=== PATIENT | female | born 2000 | race Caucasian/White ===

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

== ENCOUNTER 2020-05-16 01:05 | Outpatient (CLI) | payer MEDICAID, SELFPAY ==
[2020-05-16 01:20] VITALS: BMI 28.1
[2020-05-16 01:28] VITALS: BP 117/74; PULSE 94; TEMP 36.7; O2SAT 98
[2020-05-16 01:38] VITALS: TEMP 36.7; O2SAT 98
--- NOTE | 2020-05-16 09:53 | OB.TRI.HP_ITS ---
- Problem List (1) 39 weeks gestation of Status: Acute (2) Irregular contractions Status: Acute History of Present Illness Date of Service: 05/16/20 Was patient seen by the physician?: No Reason For Visit: R/O LABOR Date of Service: 05/16/20 Final RAISA: 05/22/20 Gestational age: 39 Weeks and 1 Days History of Present Illness: Patient is 19 year old that presents to triage c/o contractions for most of the night. Denies any LOF or VB. Patient has positive movement. Allergies No Known Allergies Allergy (Verified 11/22/18 09:32) Review of Systems Constitutional: Denies: Chills, Fever, Weight Change HEENT: Reports: Sinus Congestion, Sinus Drainage Gastrointestinal: Denies: Abdominal Pain, Nausea, Vomiting Genitourinary: Denies: Dysuria Physical Exam Vitals: Vital Signs Temp Pulse BP Pulse Ox 98.0 F 94 117/74 98 05/16/20 01:38 05/16/20 01:28 05/16/20 01:28 05/16/20 01:38 General: Alert Cardiovascular: Regular rate Lungs: Normal air movement Abdomen: Soft, Gravid Neurological: Cranial nerves II-XII grossly intact Estimated gestational size: Appropriate for gestational size Presentation: Cephalic Cervix Dilation (cm): 2 Station: -3 Effacement (%): 70 NST - FHR Rate Baby A Baseline: 125 Variability:: Moderate Accelerations:: 15 x 15 Decelerations:: None NST Reactive:: Yes FHR Category:: Category I Uterine Activity:: [place] reading 3-7 minutes. Palpate mild and relaxed in between Impression/Plan Patient is a at 39.1 weeks gestation for R/O labor NST reactive Category 1 tracing CE unchanged Discharge home with labor precautions Follow up in office for scheduled visit Patient agrees with plan of care
[2020-05-16 19:20] VITALS: TEMP 36.9; O2SAT 98
[2020-05-16 19:21] VITALS: BP 123/66; PULSE 100
== END 2020-05-16 03:40 | disposition home or self-care (01) ==
LOC: WPOUT 01:10 → OBT 01:11
PROVIDERS: Visit Provider Advanced Practice Midwife
DX: O62.9 Abnormality of forces of labor, unspecified (principal); Z3A.39 39 weeks gestation of pregnancy
CPT/HCPCS: 59025; 59050; 99218; G0378

== ENCOUNTER 2020-05-16 19:45 | Inpatient (IN) | payer MEDICAID, SELFPAY ==
[2020-05-16] VITALS (27 sets, daily range): BP systolic 98–120; BP diastolic 52–85; PULSE 75–113; TEMP 37–37.1; O2SAT 88–100; BMI 28.1; BMI 27.4
[2020-05-16] MEDS: Lactated Ringers 500 ML 999 ML IV (20:10)
[2020-05-16 20:26] LABS: Absolute Lymphocyte Count 1.53 X10^3/uL (0.83-4.51); Absolute Neutrophil Count 8.2 X10^3/uL (2.0-7.7); Basophil# 0.01 X10^3/uL; Basophil% 0.1 % (0-1); Eosinophil# 0.03 X10^3/uL; Eosinophils% 0.3 % (0-5); Hematocrit 39.3 % (37-47); Hemoglobin 13.1 g/dL (12.0-15.0); Lymphocyte # 1.53 X10^3/ul (4.0); Lymphocyte % 14.8 % (19-41); Mean Corp Hgb Conc 33.3 g/dL (32-36); Mean Corpuscular Hgb 30.2 pg (27.0-32.0); Mean Corpuscular Volume 90.6 fL (81-99); Mean Platelet Vol. 10.7 fl (6.2-12.0); Monocyte# 0.52 X10^3/uL; NRBC Flagged by Analyzer 0 % (0-5); Neutrophil # 8.21 X10^3/uL (2.7-7.7); Neutrophil % 79.5 % (47-70); Platelet Count 131 K/mm3 (150-450); RBC Distribution Width CV 13.4 % (11.6-14.6); RBC Distribution Width SD 44.1 fl (35.1-43.9); Red Blood Count 4.34 M/mm3 (4.2-5.4); White Blood Count 10.3 K/mm3 (4.4-11.0)
[2020-05-16] MEDS: Ondansetron 4 MG/2 ML Vial IV (20:46)
[2020-05-16] MEDS: Lactated Ringers 1,000 ML 200 ML IV (20:49)
--- NOTE | 2020-05-16 21:40 | HP.PCM_ITS ---
- Problem List (1) Active labor Status: Acute (2) 39 weeks gestation of Status: Acute (3) Group beta Strep positive Status: Acute History Date of Admission: 05/16/20 Final RAISA: 05/22/20 Gestational age: 39 Weeks and 1 Days History of this : This is a 19 year-old, G [1], P [0], at 39.1 weeks gestational age that arrives in spontaneous labor. Patient reports having strong, regular contractions that started yesterday. Denies loss of fluid or vaginal bleeding. Positive movement. uncomplicated Allergies No Known Allergies Allergy (Verified 11/22/18 09:32) Home Medications: Home Medications Pnv No.95/Ferrous Fum/Folic AC [ Formula] 1 ea PO DAILY 05/16/20 Smoking Status: Never smoker Number of Fetus(es): 1 NST - FHR Rate Baby A Baseline: 155 Variability:: Moderate Accelerations:: 15 x 15 Decelerations:: None NST Reactive:: Yes FHR Category:: Category I Uterine Activity:: Contractions every 2-4 minutes. Palpate moderate and relaxed in between History Past Pregnancies: Past Pregnancies Delivery Date Name GA/ Weeks Outcome Route Wt Sex Labor Length Anesthesia Delivery Location Provider FOB Labs: A positive Rubella- Immune HB- negative HIV- NR RPR- NR GC/C negative GBS - Positive in urine Review of Systems Constitutional: Denies: Chills, Fever, Weight Change Cardiovascular: Denies: Chest Pain, Palpitations Respiratory: Denies: Cough, Shortness of breath at rest Gastrointestinal: Denies: Dyspepsia Neurological: Denies: Numbness, Tingling, Focal weakness Physical Exam Vitals: Vital Signs Temp Pulse BP Pulse Ox 98.7 F 93 119/65 98 05/16/20 21:20 05/16/20 21:13 05/16/20 21:07 05/16/20 21:20 General: Alert, Oriented x3, Cooperative Cardiovascular: Regular rate Lungs: Normal air movement Abdomen: Gravid Neurological: Cranial nerves II-XII grossly intact APPLICATIONS DEVELOPMENT ANALYST: Normal external genitalia Cervix Dilation (cm): 4.5 Station: -2 Effacement (%): 70 Assessment/Plan All Active Problems 39 weeks gestation of (Acute) Irregular contractions (Acute) Active labor (Acute) Group beta Strep positive (Acute) This is a 19 year-old, G [1], P [0], at 39.1 weeks gestational age in spontaneous labor. Category 1 tracing GBS -positive P: Admit to labor and delivery Routine labs IV fluids per protocol Start GBS prophylaxis therapy- PCN 5 million units IV x1 now and PCN 3 million units every 4 hours until delivery Epidural for pain relief per patient request Declines LARC Anticipate Dr. Sanchez notified of admission and is collaborating physician
[2020-05-16] MEDS: Oxytocin 30 units/NS 500 ml 30 UNITS/500 ML IV.SOLN IV (23:11)
[2020-05-17] VITALS (36 sets, daily range): BP systolic 83–123; BP diastolic 44–64; PULSE 61–180; RESP 14–18; TEMP 36.3–37.6; O2SAT 82–100
[2020-05-17] MEDS: Lactated Ringers 1,000 ML 200 ML IV ×2 (00:59→05:47)
[2020-05-17] MEDS: fentaNYL-bupivacaine (epidural) 100 ML BAG EPIDURAL ×2 (03:23→08:05)
--- NOTE | 2020-05-17 07:51 | PN.OBGYN_ITS ---
Patient Problems: Active and Suspected Problems Active labor (Acute) Group beta Strep positive (Acute) Subjective: Patient denies pain and is comfortable with epidural. Denies feeling any contractions or pressure. Objective: Patient seen at bedside. Resting comfortably. - Physical Exam Vitals/I&O's: Vital Signs Temp Pulse BP Pulse Ox 99.2 F H 180 H 107/56 L 82 05/17/20 07:01 05/17/20 07:34 05/17/20 07:34 05/17/20 07:34 Weight: 150 lb Body Mass Index (BMI) 27.4 Intake and Output for Last 24 Hours 05/15/20 05/16/20 05/17/20 23:59 23:59 23:59 Intake Total 805 / 805 1994. / Output Total 200 / 200 900 / 900 Balance 605 / 605 1095.63 / 1095.63 General: Alert Lungs: Normal air movement Cardiovascular: Regular rate Neurological: Cranial nerves II-XII grossly intact Psych/Mental Status: Normal Affect, Appropriate Comment: CE- 10cm/-1 station Laboratory Results 05/16/20 20:10: WBC 10.3, RBC 4.34, Hgb 13.1, Hct 39.3, MCV 90.6, MCH 30.2, MCHC 33.3, RDW Std Deviation 44.1 H, RDW Coeff of Edward 13.4, Plt Count 131 L, MPV 10.7, Immature Gran % (Auto) 0.300, Neut % (Auto) 79.5 H, Lymph % (Auto) 14.8 L, [place] % (Auto) 5.0, Eos % (Auto) 0.3, Baso % (Auto) 0.1, Absolute Neuts (auto) 8.2 H, Absolute Lymphs (auto) 1.53, Nucleated RBC % 0 05/16/20 20:10: Blood Type A POSITIVE, Antibody Screen NEGATIVE 05/16/20 21:00: COVID-19 ([facility]ARA) Not Detected Current Medications Acetaminophen (Tylenol) 325 - 650 mg PO Q4H PRN PRN PRN Reason: Pain Score 1-3/10 Al Hydroxide/Mg Hydroxide (Mylanta Ii) 15 - 30 ml PO Q4H PRN PRN PRN Reason: INDIGESTION Citric Acid/Sodium Citrate (Bicitra) 30 ml PO X1 PRN PRN Reason: Section Ephedrine Sulfate () 10 mg IV Q10M PRN PRN Reason: hypotension Ephedrine Sulfate () 10 mg IM Q30M PRN PRN Reason: hypotension Fentanyl Citrate (Sublimaze (100mcg Ampule)) 25 - 50 mcg IV Q2H PRN PRN PRN Reason: Pain Score 4-10/10 Fentanyl/Bupivacaine/Sodium Chlor () 100 ml EPIDURAL UD [facility]; Protocol Last Admin: 05/17/20 03:23 Dose: 100 ml Documented by: Lactated Ringer's () 500 mls @ 999 mls/hr IV .Q31M PRN PRN Reason: Epidural Last Infusion: 05/16/20 20:49 Dose: Infused Documented by: Lactated Ringer's () 500 mls @ 999 mls/hr IV .Q31M PRN PRN Reason: Corrective Measures Lactated Ringer's () 1,000 mls @ 50 mls/hr IV .Q20H [facility] Last Admin: 05/17/20 05:47 Dose: 200 mls/hr Documented by: Penicillin G Potassium/Dextrose (Penicillin G Potassium) 3 mu in 50 mls @ 100 mls/hr IV Q4H [facility] Last Infusion: 05/17/20 05:35 Dose: Infused Documented by: Naloxone HCl 4 mg/ Dextrose 504 mls @ 0 mls/hr IV .Q0M PRN; Protocol PRN Reason: To maintain Resp. rate >10 Oxytocin/Sodium Chloride () 30 units in 500 mls @ 2 mls/hr IV .Q250H [facility] Last Infusion: 05/17/20 00:20 Dose: 4 mls/hr Documented by: Nalbuphine HCl (Nubain) 5 mg IV Q3H PRN PRN PRN Reason: ITCHING Naloxone HCl (Narcan) 0.02 mg IV Q1M PRN PRN Reason: RR< 10 AND PT UNRESPONSIVE Ondansetron HCl (Zofran) 4 mg IV Q4H PRN PRN PRN Reason: NAUSEA Last Admin: 05/16/20 20:46 Dose: 4 mg Documented by: Prochlorperazine Edisylate (Compazine Iv) 10 mg IV Q6H PRN PRN PRN Reason: NAUSEA Sodium Chloride () 10 - 40 ml IV X1 PRN PRN Reason: SALINE FLUSH Medical Necessity - Tobacco Use Smoking Status: Never smoker Assessment/Plan All Active Problems 39 weeks gestation of (Acute) Irregular contractions (Acute) Active labor (Acute) Group beta Strep positive (Acute) A/P Term spontaneous labor Patient treated appropriately with PCN IV for GBS positive status Complete dilation A.R.O.M for moderate amount of clear fluid Start pushing Routine care Anticipate
[2020-05-17] MEDS: Ondansetron 4 MG/2 ML Vial IV (08:12)
[2020-05-17] MEDS: Mag Hydrox/Al Hydrox/Simeth 30 ML UDC PO (08:58)
[2020-05-17] MEDS: Oxytocin 30 units/NS 500 ml 30 UNITS/500 ML IV.SOLN 334 UNITS IV (10:33)
--- NOTE | 2020-05-17 10:53 | PCM.OPRPT ---
Problem List (1) Active labor Status: Acute (2) 39 weeks gestation of Status: Acute (3) Group beta Strep positive Status: Acute (4) (spontaneous vaginal delivery) Status: Acute Report of Operation Date of Procedure: 05/17/20 Pre-Operative Diagnosis: Term gestation, spontaneous labor Post-Operative Diagnosis: Same, viable female infant Surgery/Procedure Performed:: Vaginal Delivery Maternal Presentation: Active Labor Amniotic Membrane Rupture Type: Artificial Amniotic Fluid Description: Clear Gestational age: 39.1 Date of Procedure: 05/17/20 Pre-Operative Diagnosis: Term gestation, spontaneous labor Post-Operative Diagnosis: Same, viable female Type of Anesthesia: Epidural Description of Procedure: of female . Good maternal pushing efforts delivered head. Tight nuchal cord noted and unable to reduce. Gentle downward traction with delivery of the anterior shoulder followed by the rest of delivered in somersault maneuver. Cord around body as well. Large amount of terminal meconium noted. Cord was quickly clamped and cut and passed off to awaiting nursing staff. Placenta delivered soon after spontaneously and intact. Fundus firm at U. Intact perineum. Hemostasis present. Presentation: LEROY Placental Delivery Description: Spontaneous Placenta Disposition: [facility] Cord Vessel Description: 3 Vessels Nuchal Cord Compression: With compression Cord Gases drawn per routine: ABG, VBG Cord Entanglement: Around neck x 1, tight - Around body Drain: Key[place] to straight drain Estimated Blood Loss: 300 Infant A gender: Female (1 minute): 6 - Terminal mec (5 minute): 8 Episiotomy Description: None Laceration: None Medications given after delivery: IV Pitocin
[2020-05-17] MEDS: 0.9% Saline Lock 10 ML Syringe IV (13:04)
[2020-05-17] MEDS: Ibuprofen 600 MG Tablet PO ×2 (13:05→19:15)
[2020-05-17] MEDS: Acetaminophen 500 MG Tablet 1000 MG PO (17:56)
[2020-05-18] MEDS: Ibuprofen 600 MG Tablet PO ×2 (02:16→11:13)
[2020-05-18 03:14] VITALS: BP 100/54; PULSE 74; RESP 14; TEMP 36.3
[2020-05-18] MEDS: Acetaminophen 500 MG Tablet 1000 MG PO (07:14)
[2020-05-18 08:00] VITALS: BP 109/55; PULSE 81; RESP 16; TEMP 36.5
[2020-05-18 08:07] VITALS: BP 109/55; PULSE 81
--- NOTE | 2020-05-18 08:47 | DCINST_ITS ---
Discharge Diet: No Restrictions Discharge Activity: Return to Normal Activity, May not drive while taking narcotic pain medications., May Shower May resume sexual activity in: 4-6 weeks Additional Activity Instructions:: Nothing in the vagina for 4-6 weeks. You may return to work/school in 6 weeks. Call your doctor if your incision/area has: Continuous Slow Oozing, Sudden Increased Bleeding, Increased Pain/ Swelling, Increased Redness, Foul Smelling Discharge Additional Instructions: If you experience any of the following, contact your healthcare provider. * Bleeding that soaks a pad every hour for 2 hours * Fever 100.4 or higher * Unrelieved incision or abdominal pain * Swelling, redness, discharge or bleeding from your incision or episiotomy site * Your incision begins to separate * Problems urinating (including inability to urinate or burning while urinating). * Visual changes * Severe headache * Flu-like symptoms * Pain or redness in one of both of your breasts * Pain, warmth, tenderness or swelling in your legs, especially the calf area * Frequent nausea and vomiting * Symptoms of depression or anxiety If you experience any of the following, call 911 or go to the nearest Emergency Room. * Chest pain * Problems breathing * Seizure activity * Partial or complete paralysis of a body part, slurred speech, weakness or drooping of the face, or a sudden inability to walk or hold your balance Allergies/Adverse Reactions: Allergies No Known Allergies Allergy (Verified 11/22/18 09:32) Medications to take at Discharge Pnv No.95/Ferrous Fum/Folic AC [ Formula Tablet] 1 ea PO DAILY 05/16/20 Please Follow Up With: Tisha England MD - [phone] When: Call to make an appointment with our office in 1-2 and 6 weeks or as needed They can be virtual appointments if you desire. Primary Care Physician: Care Physician,No Primary [Primary Care Provider] - Test Results: Test results from this visit will be discussed in further detail at your follow- up appointment, if applicable.
--- NOTE | 2020-05-18 08:47 | PCM.DCVAG ---
Discharge Diet: No Restrictions Discharge Activity: Return to Normal Activity, May not drive while taking narcotic pain medications., May Shower May resume sexual activity in: 4-6 weeks Additional Activity Instructions:: Nothing in the vagina for 4-6 weeks. You may return to work/school in 6 weeks. Call your doctor if your incision/area has: Continuous Slow Oozing, Sudden Increased Bleeding, Increased Pain/ Swelling, Increased Redness, Foul Smelling Discharge Additional Instructions: If you experience any of the following, contact your healthcare provider. Bleeding that soaks a pad every hour for 2 hours Fever 100.4 or higher Unrelieved incision or abdominal pain Swelling, redness, discharge or bleeding from your incision or episiotomy site Your incision begins to separate Problems urinating (including inability to urinate or burning while urinating). Visual changes Severe headache Flu-like symptoms Pain or redness in one of both of your breasts Pain, warmth, tenderness or swelling in your legs, especially the calf area Frequent nausea and vomiting Symptoms of depression or anxiety If you experience any of the following, call 911 or go to the nearest Emergency Room. Chest pain Problems breathing Seizure activity Partial or complete paralysis of a body part, slurred speech, weakness or drooping of the face, or a sudden inability to walk or hold your balance Allergies/Adverse Reactions: Allergies No Known Allergies Allergy (Verified 11/22/18 09:32) Medications to take at Discharge Pnv No.95/Ferrous Fum/Folic AC [ Formula Tablet] 1 ea PO DAILY 05/16/20 Please Follow Up With: Tisha England MD - [phone] When: Call to make an appointment with our office in 1-2 and 6 weeks or as needed They can be virtual appointments if you desire. Primary Care Physician: Care Physician,No Primary [Primary Care Provider] - Test Results: Test results from this visit will be discussed in further detail at your follow-up appointment, if applicable.
--- NOTE | 2020-05-18 08:48 | PCM.PN.OB ---
Patient Problems: Active and Suspected Problems Active labor (Acute) Group beta Strep positive (Acute) (spontaneous vaginal delivery) (Acute) Subjective: pain well controlled, average lochia - Physical Exam Vitals/I&O's: Vital Signs Temp Pulse Resp BP Pulse Ox 97.4 F L 81 14 109/55 L 97 05/18/20 03:14 05/18/20 08:07 05/18/20 03:14 05/18/20 08:07 05/17/20 16:25 Oxygen Delivery Method Room Air Weight: 68.039 kg Body Mass Index (BMI) 27.4 Intake and Output for Last 24 Hours 05/16/20 05/17/20 05/18/20 23:59 23:59 23:59 Intake Total 805 / 805 4489.49 / 4489.49 Output Total 200 / 200 2275 / 2275 450 / 450 Balance 605 / 605 2214.49 / 2214.49 -450 / -450 General: Alert, Cooperative, No apparent distress Current Medications Acetaminophen (Tylenol) 1,000 mg PO Q8H PRN PRN PRN Reason: Pain Score 1-3/10 Last Admin: 05/18/20 07:14 Dose: 1,000 mg Documented by: Bisacodyl (Dulcolax) 10 mg RECTAL UD PRN PRN Reason: If no BM Dibucaine (Dibucaine) 1 applic TOPICAL TID PRN PRN; Protocol PRN Reason: Discomfort Hydrocortisone (Hytone) 1 applic TOPICAL TID PRN PRN; Protocol PRN Reason: Discomfort Ibuprofen (Motrin) 600 mg PO Q6H PRN PRN PRN Reason: Pain Score 1-3/10 Last Admin: 05/18/20 02:16 Dose: 600 mg Documented by: Methylergonovine Maleate (Methergine) 0.2 mg IM X1 PRN PRN Reason: Excess bleeding/uterine atony Ondansetron HCl (Zofran) 4 mg IV Q4H PRN PRN PRN Reason: Nausea Oxycodone HCl (Oxyir) 5 - 10 mg PO Q4H PRN PRN PRN Reason: Pain Score 4-10/10 Senna/Docusate Sodium (Senokot-S, Elaina-Colace) 1 - 2 tablet PO DAILY PRN PRN PRN Reason: Constipation Simethicone (Mylicon) 80 mg PO PCHS PRN PRN Reason: Indigestion/Stomach pain Sodium Chloride () 5 - 15 ml IV UD PRN PRN Reason: SALINE FLUSH Last Admin: 05/17/20 13:04 Dose: 10 ml Documented by: Medical Necessity - Tobacco Use Smoking Status: Never smoker Assessment/Plan All Active Problems 39 weeks gestation of (Acute) Irregular contractions (Acute) Active labor (Acute) Group beta Strep positive (Acute) (spontaneous vaginal delivery) (Acute) PPD#1 s/p doing well and doing well desires d/c home today
[2020-05-18 13:04] VITALS: BP 103/56; PULSE 82
[2020-05-18 13:17] VITALS: BP 103/56; PULSE 82; RESP 16; TEMP 36.4
== END 2020-05-18 14:20 | disposition home or self-care (01) | DRG 560 ==
LOC: WPOUT 19:48 → WP 19:48
PROVIDERS: Admitting Provider Advanced Practice Midwife; Visit Provider Advanced Practice Midwife
DX: O99.824 Streptococcus B carrier state complicating childbirth (principal); O69.1XX0 Labor and delivery complicated by cord around neck, with compression, not applicable or unspecified; O77.0 Labor and delivery complicated by meconium in amniotic fluid; Z3A.39 39 weeks gestation of pregnancy; Z37.0 Single live birth
CPT/HCPCS: 59025; 59050; 85025; 86850; 86900; 86901; 87635; 99218; G2023; J7120; A4216; G0378; J2405; U0003

== ENCOUNTER 2024-08-05 07:17 | Inpatient (IN) | payer MEDICAID, SELFPAY ==
[2024-08-05] VITALS (51 sets, daily range): BP systolic 91–195; BP diastolic 39–113; PULSE 69–118; RESP 13–19; TEMP 36.2–37.4; O2SAT 94–100; BMI 29.2
--- NOTE | 2024-08-05 | PLAC_PTH ---
PATIENT: RATNA WHATLEY LOC: [facility] U#:[id number] AGE/SX: 24/F ROOM: WP003 RE08/05/[address]: Dr. Brittany Tomas MD : 2000 BED: 1 DIS: 08/07/2024 SPEC #: [id number] RECD: 08/06/24 00:16 STATUS: RON REQ #: [id number] NELLI: 08/05/24 00:[address]: Brittany Tomas DEPT: SURGICAL PATHOLOGY RECD BY: Artur Singh ENTERED: 08/06/24 10:17 SP TYPE: PLACENTA OTHR DR: No Primary Care Phys Tissues: Placenta, NOS Procedures: Surgery Specimen Level V HEADER OPERATION: Primary section PRE-OP DIAGNOSIS: intolerance of labor TISSUE SUBMITTED: Placenta MICROSCOPIC DIAGNOSIS Meier placenta (582 gm): Umbilical cord - Trivascular with no evidence of inflammation Placental membranes - No pathologic change Placental disc - Claudia-Garfield change and intervillous congestion AM: 08/08/2024 MICROSCOPIC DESCRIPTION Slides are reviewed. GROSS DESCRIPTION SPECIMEN: PLACENTA / CLINICAL INFORMATION: A. Weight: 3.865 kg B. Gestational Age: 39 weeks C. Sex: Male PLACENTAL WEIGHT (POST FIXATION): 562 gm PLACENTAL DIMENSIONS: 17.0 x 17.0 x 4.0 cm PLACENTAL SHAPE: Usual ovoid PLACENTAL WEIGHT FOR GESTATIONAL AGE: Over 99th percentile MEMBRANES - Present A. Insertion: Marginal B. Site of rupture from edge: at the margin of placental disc C. Color of membrane: Boyd-velasquez D. Abnormalities: None UMBILICAL CORD - Present A. Color: Boyd-velasquez B. Insertion: Paracentral C. Length: 37.0cm D. Diameter: 1.5 cm E. Number of vessels: Three F. Abnormalities: None PLACENTAL DISC - Present A. Color of surface: Boyd-velasquez B. surface abnormalities: None C. Maternal cotyledons: Intact with minimal tears D. Attached retro placental clot: No clot E. Cut surface: Dark red and spongy F. Lesions: None G. Separate clot: Absent SECTIONS SUBMITTED: (6 cassettes) 1. Membrane roll 2. Cord, maternal end 3. Cord, end 4. Placental disc, and maternal surfaces 5. Placental disc, and maternal surfaces 6. Placental disc, and maternal surfaces SJ. 08/07/2024 TC:5 CPT: 32296
[2024-08-05] MEDS: Lactated Ringers 1,000 ML 50 ML IV (07:55)
[2024-08-05] MEDS: Oxytocin 15 Units/NS 250ml 15 UNITS/250 ML IV.SOLN 2 UNITS IV (08:05)
[2024-08-05 08:11] LABS: Absolute Lymphocyte Count 1.77 X10^3/uL (0.83-4.51); Absolute Neutrophil Count 4.2 X10^3/uL (2.0-7.7); Basophil# 0.03 X10^3/uL; Basophil% 0.5 % (0-1); Eosinophil# 0.04 X10^3/uL; Eosinophils% 0.6 % (0-5); Hematocrit 38.1 % (37-47); Hemoglobin 12.4 g/dL (12.0-15.0); Lymphocyte # 1.77 X10^3/ul (0.83-4.51); Mean Corp Hgb Conc 32.5 g/dL (32-36); Mean Corpuscular Hgb 27.7 pg (27.0-32.0); Mean Corpuscular Volume 85.2 fL (81-99); Mean Platelet Vol. 11.8 fl (6.2-12.0); Monocyte# 0.48 X10^3/uL; Monocyte% 7.3 % (0-10); NRBC Flagged by Analyzer 0 % (0-5); Neutrophil # 4.22 X10^3/uL (2.7-7.7); Neutrophil % 64.3 % (47-70); Platelet Count 111 K/mm3 (150-450); RBC Distribution Width CV 13.3 % (11.6-14.6); RBC Distribution Width SD 41.3 fl (35.1-43.9); Red Blood Count 4.47 M/mm3 (4.2-5.4); White Blood Count 6.6 K/mm3 (4.4-11.0)
[2024-08-05] MEDS: 0.9% Normal Saline Single 100 ML IV.SOLN. INTRA-UTER (08:21)
[2024-08-05 08:46] LABS: Syphilis Antibodies Non-reactive
--- NOTE | 2024-08-05 09:07 | PCM.HP.OB ---
HPI - General General Date of Admission: 08/05/24 HPI Narrative RATNA WHATLEY, is a 24 F who presents at 39weeks for induction of labor due to AC >99th percentile, EFW 97th percentile. Maternal Data Information RAISA Calculator Estimated Delivery Date Method Current WG Current Estimate 08/12/24 Manual 39w 0d PFSH PFSH Home Medications ?Medication ?Instructions ?Recorded ?Last Taken ?Type vit no.95-ferrous 1 ea PO DAILY 05/16/20 08/04/24 20:00 History fumarate 28 mg-folic acid 800 mcg 1 ea tablet Allergy/AdvReac Type Severity Reaction Status Date / Time No Known Allergies Allergy Verified 08/05/24 07:36 Surgical History (Updated 08/05/24 @ 08:30 by Kenneth Wheatley) History of surgery Social History Smoking Status: Never smoker History Elective abortions Hx Para 1 Spontaneous abortions Hx # Term Pregnancies Ectopic pregnancies Hx # Pregnancies Multiple births # of living children NST FHR Rate Baby A Baseline: 135 Variability:: Moderate Accelerations:: 15 x 15 Decelerations:: None FHR Category:: Category I Uterine Activity:: Irregular ROS Constitutional Constitutional: Reports systems reviewed and no addt'l complaints, except as documented; Denies headache(s) Eyes Eyes: Denies acute decrease in peripheral vision, blurry vision or change in vision ENT HEENT: Reports systems reviewed and no addt'l complaints, except as documented Cardiovascular Cardiovascular: Denies chest pain or dizziness Respiratory/Chest Respiratory/Chest: Denies cough, dyspnea, dyspnea on exertion, shortness of breath at rest or shortness of breath with exertion Gastrointestinal Gastrointestinal: Denies abdominal pain, diarrhea, nausea or vomiting Genitourinary Genitourinary: Denies abdominal discomfort Musculoskeletal Musculoskeletal: Denies limited range of motion Integumentary Integumentary: Reports systems reviewed and no addt'l complaints, except as documented Neurologic Neurologic: Reports systems reviewed and no addt'l complaints, except as documented Psychiatric Psychiatric: Reports systems reviewed and no addt'l complaints, except as documented Endocrine Endocrinology: Reports systems reviewed and no addt'l complaints, except as documented Hematologic/Lymphatic Hematologic/Lymphatic: Reports systems reviewed and no addt'l complaints, except as documented Allergic/Immunologic Allergic/Immunologic: Reports systems reviewed and no addt'l complaints, except as documented Vital Signs Vital Signs Vital Signs: 08/05/24 07:30 08/05/24 07:30 08/05/24 07:30 Temperature Temperature Source Temporal Pulse Rate 95 Respiratory Rate Blood Pressure 109/66 BP Systolic 109 BP Diastolic 66 08/05/24 07:30 08/05/24 07:30 08/05/24 08:32 Temperature 97.2 F L Temperature Source Pulse Rate Respiratory Rate 16 Blood Pressure 135/78 H BP Systolic 135 BP Diastolic 78 08/05/24 08:32 Temperature Temperature Source Pulse Rate 94 Respiratory Rate Blood Pressure BP Systolic BP Diastolic Weight Weight: 160 lb 4.417 oz Body Mass Index (BMI) 29.2 Physical Exam Const alert and oriented x3 General Appearance: cooperative Orientation / Consciousness: awake, oriented to person, oriented to place and oriented to time Exam Limitations: no limitations HEENT normocephalic Head and Scalp: normal to inspection, normocephalic and atraumatic Face and Sinus: normal facial exam Eyes General Eye: normal appearance of both eyes Neck full ROM Chest Chest: symmetrical chest wall rise Resp normal respiratory effort and normal air movement Auscultation: clear to auscultation bilaterally Cardio regular rate, regular rhythm, S1 normal heart sound, S2 normal heart sound, no murmurs, no rub, no gallops and no clicks GI normal to inspection, nondistended, normoactive bowel sounds and non-tender appearance of the vagina normal Bladder / Kidney Exam: no CVA tenderness Manual OB Exam: estimated gestational size appropriate (<4500g), presentation cephalic, dilated 1cm, effaced 50%, station -2 and other Keyes inserted through cervix with stylus, 30ml NS instilled. Tolerated well Back/Spine normal ROM Extremity normal to inspection and full ROM Skin no rashes or lesions noted Neuro oriented x3, CN's II-XII intact bilaterally and moves all extremities Sensorium / Orientation: awake, alert and oriented to person Motor Exam: clonus absent Deep Tendon Reflexes: Rt Patellar (L4): 2+ and Lt Patellar (L4): 2+ Labs Labs Labs: Blood Type A POSITIVE Antibody Screen NEGATIVE Hct 38.1 % (37-47) Hgb 12.4 g/dL (12.0-15.0) Syphilis Total Ab Non-reactive Rhogam given: No GBS negative 1hr GCT abnormal, 3hr unable to be completed. BG testing after 05/31/24 and all normal RPR non reactive Rubella Immune RPR negative HBsAG negative HepC negative A positive GC/CT negative Assessment & Plan (1) Encounter for induction of labor: (2) LGA (large for gestational age) fetus: (3) Abnormal glucose in , antepartum: COMMENT: Failed 1hr GCT, unable to complete 3hr GTT. BG testing all normal ranges. PLAN: Plan 1) Admit to labor and delivery 2) Routine labs 3) Continuous EFM 4) Pitocin per protocol 5) Keyes for cervical ripening 6) Epidural for pain management upon request 7) collaborative physician and notified of patient status, above assessment and plan.
[2024-08-05 10:05] LABS: Bedside Glucose 72 mg/dL (74-106)
[2024-08-05 10:05] LABS: Bedside Glucose 72 mg/dL (74-106)
[2024-08-05] MEDS: Lactated Ringers 1,000 ML 999 ML IV ×2 (10:37→18:28)
[2024-08-05] MEDS: fentaNYL-bupivacaine (epidural) 100 ML BAG EPIDURAL ×2 (11:36→16:16)
--- NOTE | 2024-08-05 12:33 | PN.OBGYN_ITS ---
Subjective Subjective Comfortable in bed after epidural placement. Objective Data Objective Data Vital Signs: Vital Signs Temp Pulse Resp BP Pulse Ox 98.0 F 78 16 114/70 100 08/05/24 10:35 08/05/24 12:11 08/05/24 12:00 08/05/24 12:11 08/05/24 12:07 Weight: 160 lb 4.417 oz Body Mass Index (BMI) 29.2 Intake & Output: Intake and Output for Last 24 Hours 08/03/24 08/04/24 08/05/24 23:59 23:59 23:59 Intake Total 1344.43 / 1344.43 Output Total 600 / 600 Balance 744.43 / 744.43 Lab / Micro Data 08/05/24 07:55 Labs: Laboratory Results - last 24 hr 08/05/24 07:55: WBC 6.6, RBC 4.47, Hgb 12.4, Hct 38.1, MCV 85.2, MCH 27.7, MCHC 32.5, RDW Std Deviation 41.3, RDW Coeff of Edward 13.3, Plt Count 111 L, MPV 11.8, Immature Gran % (Auto) 0.300, Neut % (Auto) 64.3, Lymph % (Auto) 27.0, [place] % (Auto) 7.3, Eos % (Auto) 0.6, Baso % (Auto) 0.5, Absolute Neuts (auto) 4.2, Absolute Lymphs (auto) 1.77, Nucleated RBC % 0, Syphilis Total Ab Non-reactive, Blood Type A POSITIVE, Antibody Screen NEGATIVE 08/05/24 08:41: POC Glucose 72 L 08/05/24 09:40: POC Glucose 72 L Physical Exam Narrative: AROM moderate amount of clear fluid NST FHR Rate Baby A Baseline: 135 Variability:: Moderate Accelerations:: 15 x 15 Decelerations:: None FHR Category:: Category I Uterine Activity:: every 2- 3 minutes, strong Assessment & Plan (1) Encounter for induction of labor: PLAN: Plan 1) Continue with active management, pitocin per protocol 2) Epidural for pain management 3) Continuous EFM 4) notified of patient status, above assessment adn plan.
[2024-08-05] MEDS: Lactated Ringers 1,000 ML 200 ML IV (13:59)
[2024-08-05 14:22] LABS: Bedside Glucose 82 mg/dL (74-106)
[2024-08-05 14:22] LABS: Bedside Glucose 60 mg/dL (74-106)
[2024-08-05] MEDS: Ondansetron 4 MG/2 ML Vial IV (14:55)
[2024-08-05 15:48] LABS: Bedside Glucose 70 mg/dL (74-106)
[2024-08-05 17:29] LABS: Bedside Glucose 76 mg/dL (74-106)
--- NOTE | 2024-08-05 17:41 | PN.OBGYN_ITS ---
Subjective Subjective Resting in bed comfortable with epidural. Objective Data Objective Data Vital Signs: Vital Signs Temp Pulse Resp BP Pulse Ox 98.4 F 118 H 16 195/97 H 100 08/05/24 17:00 08/05/24 17:03 08/05/24 17:00 08/05/24 17:05 08/05/24 17:03 Weight: 160 lb 4.417 oz Body Mass Index (BMI) 29.2 Intake & Output: Intake and Output for Last 24 Hours 08/03/24 08/04/24 08/05/24 23:59 23:59 23:59 Intake Total 2037.2037. Output Total 1050 / 1050 Balance 988. / 98.09 Lab / Micro Data 08/05/24 07:55 Labs: Laboratory Results - last 24 hr 08/05/24 07:55: WBC 6.6, RBC 4.47, Hgb 12.4, Hct 38.1, MCV 85.2, MCH 27.7, MCHC 32.5, RDW Std Deviation 41.3, RDW Coeff of Edward 13.3, Plt Count 111 L, MPV 11.8, Immature Gran % (Auto) 0.300, Neut % (Auto) 64.3, Lymph % (Auto) 27.0, [place] % (Auto) 7.3, Eos % (Auto) 0.6, Baso % (Auto) 0.5, Absolute Neuts (auto) 4.2, Absolute Lymphs (auto) 1.77, Nucleated RBC % 0, Syphilis Total Ab Non-reactive, Blood Type A POSITIVE, Antibody Screen NEGATIVE 08/05/24 08:41: POC Glucose 72 L 08/05/24 09:40: POC Glucose 72 L 08/05/24 13:39: POC Glucose 60 L 08/05/24 13:57: POC Glucose 82 08/05/24 15:14: POC Glucose 70 L 08/05/24 16:51: POC Glucose 76
[2024-08-05] MEDS: Methylergonovine 0.2 MG/ML Ampul IM (20:15)
--- NOTE | 2024-08-05 20:36 | OP.PCM_ITS ---
Maternal Data Information RAISA Calculator Estimated Delivery Date Method Current WG Current Estimate 08/12/24 Manual 39w 0d Final RAISA: 08/12/24 Gestational age: 39 0/7 Details Operative Information Date of Procedure: 08/05/24 Pre-Operative Diagnosis: arrrest of descent, category 2 FHTS Post-Operative Diagnosis: same Classification: GIUSEPPE Procedure Type: low transverse monogram technician #1: Cassidy Adams Type of Anesthesia: Epidural Anesthesiologist: Malcolm Terry Special Medications: duramorph Antibiotic Given: Ancef 2 grams IV x1 and Zithromax 500 mg/5 mL X1 Estimated Blood Loss: 900 Fluids Replaced: 1000 Procedure Start Time: 19:51 Procedure Stop Time: 20:34 Time of Delivery: 19:52 Findings Description of Procedure: I arrived to labor and delivery the patient was complete and pushing. She been pushing for an hour. There is significant tachycardia with minimal variability at times and variables with pushing. Pitocin was turned off and patient was getting an IV fluid bolus. She was comfortable with her epidural. Station was 0 station. The head was asynclitic and ROT. I attempted with several contractions to turn the head to JENNIFER. I discussed with the patient the option of trial of the vacuum. The vacuum was placed and I attempted to pull with 1 contraction with 550 mmHg with 1 pop-off. The vacuum was then removed. It was replaced 1 other time and vacuum created but no other pulls were done and the vacuum was removed. She then continued to push while we assembled the team she been pushing for an hour and a half without any significant descent. heart tones remained tachycardic. Estimated weight was LGA. I discussed with the patient the persistent tachycardia and being remote from delivery despite adequate pushing efforts. Recommended proceeding w/ primary c/s and she desired to proceed. The patient was taken to the operating room. She was prepped and draped in the dorsal supine position with a leftward tilt. A Pfannenstiel skin incision was made approximately 2 cm above the symphysis pubis and carried through to underlying layer fascia with the scalpel. The fascia was incised incised in the midline and extended laterally with the Boogie scissors. The fascia was dissected off the rectus muscles with blunt and sharp dissection. The rectus muscles were in the midline and the peritoneum was entered bluntly. The peritoneal incision was stretched and the bladder blade was placed. The uterine incision was made in a low transverse fashion with the scalpel and extended superiorly and inferiorly with blunt dissection. The amniotic membranes were ruptured bluntly and clear amniotic fluid returned. The infant's head was brought to the incision in the flexed position and delivered without difficulty. The remainder of the infant was delivered with gentle traction and fundal pressure in the standard fashion. The mouth and nares were bulb suctio destini. The cord was clamped and cut as the infant was stimulated. Cord clamping was not delayed. The was handed off to the waiting nursing staff. The placenta was delivered with fundal massage and gentle traction in the standard fashion. The uterus was exteriorized and cleared of all clots and debris. . The uterine incision was closed with #1 Vicryl in a running locked fashion. A second layer of the same suture was used in an imbricating fashion because there was some bleeding from some large sinuses. Several [id number] Vicryl sutures were then needed in the right lateral apex, 1 of which 1 around the entire uterine artery. The incision was examined and was found to be hemostatic. There is still some generalized oozing and Heema blast was placed over the incision and pressure held for 2 minutes and then hemostasis was noted. The uterus was placed back into the peritoneal cavity and hemostasis was again confirmed. The rectus muscles were examined and any bleeding was Bovie cauterized. The parietal peritoneum and rectus muscles were closed en bloc with an 0 Vicryl running suture. Some David was placed over the rectus muscles. The rectus fascia was examined and any bleeding was Bovie cauterized and the rectus fascia was closed with 1 Vicryl suture in a running standard fashion. Some David was placed in the subcutaneous tissue. The subcutaneous tissue was examining and any bleeding was Bovie cauterized. The subcutaneous tissue was reapproximated with 3-0 Vicryl suture. The skin was closed in a subcuticular fashion by the GREENHOUSE SUPERINTENDENT with me present in the operating suite. I performed the remainder of the procedure with assistance. All sponge, lap, and needle counts were correct. The patient was taken to her room for recovery in a stable condition. Presentation: Positive for Vertex Amniotic Membrane Rupture Type: Artificial Amniotic Fluid Description: Clear Placental Delivery Description: Expressed Placenta Disposition: Sent to Pathology Cord Vessel Description: 3 Vessels Cord Entanglement: None Cord Gases: ABG and VBG Infant A Gender: Male (Kevin 8lb 8oz) (1 minute): 8 (5 minute): 9 Delayed Cord Clamping: No Complications Complications: none Admit VTE Documentation VTE Present on Admission: No VTE Mechan Device Prophylaxis: SCD's VTE Pharm Prophylaxis Ordered: No Reason Prophylaxis Not Ordered: Procedure Not Indicated
[2024-08-05] MEDS: Oxytocin 15 Units/NS 250ml 15 UNITS/250 ML IV.SOLN 83 UNITS IV (21:00)
[2024-08-05] MEDS: Cefazolin 2 GM in 0.9% Normal Saline (100mL Bag) 100 ML IV (21:03)
[2024-08-05] MEDS: Azithromycin 500 MG in Dextrose 5%-Water (250mL Bag) 250 ML 250 MG IV (21:04)
[2024-08-05] MEDS: Ketorolac 30 MG/ML Syringe IV (21:20)
[2024-08-05] MEDS: Lactated Ringers 1,000 ML 100 ML IV (22:33)
[2024-08-05 22:44] LABS: Bedside Glucose 94 mg/dL (74-106)
[2024-08-05] MEDS: Acetaminophen 500 MG Tablet 1000 MG PO (23:52)
[2024-08-06] VITALS (8 sets, daily range): BP systolic 97–110; BP diastolic 53–70; PULSE 72–95; RESP 16; TEMP 36.1–36.8; O2SAT 97–100
[2024-08-06 00:20] LABS: Pathology Specimen OB SEE PATHOLOGY REPORT
[2024-08-06] MEDS: Ketorolac 30 MG/ML Syringe IV ×3 (03:16→15:12)
--- NOTE | 2024-08-06 04:52 | NURSING ---
6880 epidural cath removed, tip intact
[2024-08-06] MEDS: Acetaminophen 500 MG Tablet 1000 MG PO ×3 (06:15→18:20)
[2024-08-06 06:17] LABS: Mean Corp Hgb Conc 33.3 g/dL (32-36); Mean Corpuscular Hgb 28.7 pg (27.0-32.0); Mean Corpuscular Volume 86.2 fL (81-99); Mean Platelet Vol. 11.2 fl (6.2-12.0); Platelet Count 104 K/mm3 (150-450); RBC Distribution Width CV 13.4 % (11.6-14.6); RBC Distribution Width SD 42.4 fl (35.1-43.9); Red Blood Count 3.48 M/mm3 (4.2-5.4)
[2024-08-06 06:47] LABS: Bedside Glucose 96 mg/dL (74-106)
--- NOTE | 2024-08-06 08:58 | PCM.PN.OB ---
Subjective Subjective Doing well. Ambulating and voiding without difficulty. Mild lochia. Breast feeding. Pain managed Objective Data Objective Data Vital Signs: Vital Signs Temp Pulse Resp BP Pulse Ox O2 Del Method 98.0 F 72 16 101/60 98 Room Air 08/06/24 03:14 08/06/24 06:09 08/06/24 06:09 08/06/24 08:29 08/06/24 06:09 08/06/24 08:29 Oxygen Delivery Method Room Air Weight: 72.7 kg Body Mass Index (BMI) 29.2 Intake & Output: Intake and Output for Last 24 Hours 08/04/24 08/05/24 08/06/24 23:59 23:59 23:59 Intake Total 4506.56 / 4506.56 1035 / 1035 Output Total 2250 / 2250 1000 / 1000 Balance 2256.56 / 2256.56 35 / 35 Lab / Micro Data 08/06/24 06:05 Labs: Laboratory Results - last 24 hr 08/05/24 08:41: POC Glucose 72 L 08/05/24 09:40: POC Glucose 72 L 08/05/24 13:39: POC Glucose 60 L 08/05/24 13:57: POC Glucose 82 08/05/24 15:14: POC Glucose 70 L 08/05/24 16:51: POC Glucose 76 08/05/24 22:24: POC Glucose 94 08/06/24 06:05: WBC 12.0 H, RBC 3.48 L, Hgb 10.0 L, Hct 30.0 L, MCV 86.2, MCH 28.7, MCHC 33.3, RDW Std Deviation 42.4, RDW Coeff of Edward 13.4, Plt Count 104 L, MPV 11.2 08/06/24 06:18: POC Glucose 96 ROS Constitutional Constitutional: Denies fatigue, fever(s) or malaise Eyes Eyes: Denies change in vision ENT HEENT: Denies dizziness or headache(s) Cardiovascular Cardiovascular: Denies chest pain, dyspnea or lightheadedness Respiratory/Chest Respiratory/Chest: Denies cough or dyspnea Gastrointestinal Gastrointestinal: Denies change in bowel habits Genitourinary Genitourinary: Denies burning urination or genital lesions Integumentary Integumentary: Denies rash Neurologic Neurologic: Denies confusion, dizziness, headache(s), numbness or weakness Physical Exam Const alert General Appearance: cooperative GI GI Narrative: soft, moderate distention, fundus firm, appropriately tender. Abdominal bandage clean dry and intact Assessment & Plan (1) Failed vacuum extraction, delivered, current hospitalization: (2) S/P :
[2024-08-06] MEDS: Senna/Docusate Sodium 1 Tablet PO (09:23)
[2024-08-06] MEDS: 0.9% Saline Lock 10 ML Syringe IV ×2 (09:25→15:12)
[2024-08-06 10:36] LABS: Bedside Glucose 68 mg/dL (74-106)
[2024-08-06 10:36] LABS: Bedside Glucose 59 mg/dL (74-106)
[2024-08-06] MEDS: Ibuprofen 600 MG Tablet PO (21:22)
[2024-08-07] MEDS: Acetaminophen 500 MG Tablet 1000 MG PO ×2 (00:12→06:23)
[2024-08-07 03:00] VITALS: BP 101/58; PULSE 86; RESP 16; TEMP 36.8
[2024-08-07] MEDS: Ibuprofen 600 MG Tablet PO ×2 (03:03→09:22)
--- NOTE | 2024-08-07 07:32 | PCM.PN.OB ---
Subjective Subjective Doing well. Ambulating and voiding without difficulty. Mild lochia. Breast feeding. Pain managed Objective Data Objective Data Vital Signs: Vital Signs Temp Pulse Resp BP Pulse Ox O2 Del Method 98.2 F 86 16 101/58 L 100 Room Air 08/07/24 03:00 08/07/24 03:00 08/07/24 03:00 08/07/24 03:00 08/06/24 20:11 08/07/24 03:00 Oxygen Delivery Method Room Air Weight: 72.7 kg Body Mass Index (BMI) 29.2 Intake & Output: Intake and Output for Last 24 Hours 08/05/24 08/06/24 08/07/24 23:59 23:59 23:59 Intake Total 4506.56 / 4506.56 1035 / 1035 Output Total 2250 / 2250 1000 / 1000 Balance 2256.56 / 2256.56 35 / 35 Lab / Micro Data 08/06/24 06:05 Labs: Laboratory Results - last 24 hr 08/05/24 16:21: POC Glucose 59 L 08/05/24 16:33: POC Glucose 68 L ROS Constitutional Constitutional: Denies fatigue, fever(s) or malaise Eyes Eyes: Denies change in vision ENT HEENT: Denies dizziness or headache(s) Cardiovascular Cardiovascular: Denies chest pain, dyspnea or lightheadedness Respiratory/Chest Respiratory/Chest: Denies cough or dyspnea Gastrointestinal Gastrointestinal: Denies change in bowel habits Genitourinary Genitourinary: Denies burning urination or genital lesions Integumentary Integumentary: Denies rash Neurologic Neurologic: Denies confusion, dizziness, headache(s), numbness or weakness Physical Exam Const alert General Appearance: cooperative GI GI Narrative: soft, moderate distention, fundus firm, appropriately tender. Abdominal bandage clean dry and intact Assessment & Plan (1) S/P : (2) Failed vacuum extraction, delivered, current hospitalization: (3) LGA (large for gestational age) fetus: PLAN: Plan discharge home
--- NOTE | 2024-08-07 07:33 | PCM.DC.SUM ---
Providers Date of Admission: 08/05/24 Date of Discharge: 08/07/24 Primary Care Physician: Kacey Primary Care Phys Reason For Visit: PRIMARY C SECTION Diagnosis Discharge Diagnosis (1) S/P : Status: Acute Code(s): Z98.891 - History of uterine scar from previous surgery (2) Failed vacuum extraction, delivered, current hospitalization: Status: Acute Code(s): O66.5 - Attempted application of vacuum extractor and forceps (3) LGA (large for gestational age) fetus: Status: Acute Plan discharge home Medications at Discharge Home Medications vit no.95-ferrous fumarate 28 mg-folic acid 800 mcg tablet 1 ea PO DAILY 05/16/20 Hospital Course Operations section Procedures None Summary of Care Provided Minutes Spent on Discharge: 20 Hospital Course: Induction of labor. Failed vacuum. Primary c/s without complication. Breast feeding . Physical Exam Const alert General Appearance: cooperative GI GI Narrative: soft, moderate distention, fundus firm, appropriately tender. Abdominal bandage clean dry and intact Weight / BMI Weight Weight: 72.7 kg Body Mass Index (BMI) 29.2 ABG / Lab / Microbiology Data 08/06/24 06:05 Laboratory: Laboratory Results - last 24 hr 08/05/24 16:21: POC Glucose 59 L 08/05/24 16:33: POC Glucose 68 L D/C Instructions Discharge Diet: No restrictions May resume sexual activity in: 4-6 weeks Lifting Restrictions: 20 pounds Additional Activity Instructions: Nothing in the vagina for 4-6 weeks. You may return to work/school in 6 weeks. Call your doctor if your incision/area has: Continuous Slow Oozing, Sudden Increased Bleeding, Increased Pain/ Swelling, Increased Redness and Foul Smelling Discharge Call your doctor if you observe: Fever of 101 or Higher and Using more than 1 pad per hour (for 2 hours) Suture Line Care: Avoid Pulling/Pushing and Avoid Pinching/Bending Cleanse incision/area with: Keep Dressing Clean & Dry Please Follow Up With: Brittany Tomas MD When: Call to make an appointment for an incision check in 1-2 [phone]. You will need a post check in 6 weeks. Meaningful Use Info Meaningful Use Meaningful Use Diagnoses (Choose all that apply): None applicable Ischemic Stroke Statin Dosing Therapy Reference: STATIN DOSE THERAPY REFERENCE: * Patients > 75 years receive moderate or high dose statin therapy. * Patients 75 years or YOUNGER should receive HIGH intensity statin dose unless contraindicated. You will be required to document reason for non-treatment if statin daily dose does not meet guidelines. HIGH DOSE STATIN THERAPY DAILY Atorvastatin > than or = to 40 mg Rosuvastatin > than or = to 20 mg Amlodipine + Atorvastatin > than or = to 2.5/40 mg Ezetimibe + Simvastatin 10/80 mg Simvastatin 80mg Discharge Plan Admission Admit Date/Time: 08/05/24 07:17 Primary Reason for Your Visit: labor delivery Attending Provider: Brittany Tomas Primary Care Provider: Rolly Physician,Kacey Primary Discharge Orders/Prescriptions Prescriptions: Continued PNV cmb#95-ferrous fumarate-FA 1 EACH tablet 1 ea PO DAILY Referrals / Follow Up: Care Physician,No Primary [Primary Care Provider] - Disposition Disposition (needs filled in before D/C Order can be placed): Home, Self Care
[2024-08-07 08:33] VITALS: BP 112/63; PULSE 104; RESP 16; TEMP 36.3; O2SAT 97
--- NOTE | 2024-08-07 08:38 | NURSING ---
funus +3, midline. pt instructed to void, will recheck fundus
[2024-08-07] MEDS: Senna/Docusate Sodium 1 Tablet PO (09:22)
== END 2024-08-07 10:55 | disposition home or self-care (01) | DRG 540 ==
PROVIDERS: Obstetrics & Gynecology; Admitting Provider Obstetrics & Gynecology; Referring Provider Obstetrics & Gynecology; Visit Provider Obstetrics & Gynecology
DX: O64.8XX0 Obstructed labor due to other malposition and malpresentation, not applicable or unspecified (principal); O36.63X0 Maternal care for excessive fetal growth, third trimester, not applicable or unspecified; O76 Abnormality in fetal heart rate and rhythm complicating labor and delivery; Z37.0 Single live birth; O66.5 Attempted application of vacuum extractor and forceps; Z3A.39 39 weeks gestation of pregnancy
CPT/HCPCS: 59025; 59050; 82962; 85025; 85027; 86780; 86850; 86900; 86901; 88307; 99221; J7120; A4216; G0378; J2405